=== PATIENT | female | born 1990 | race African-American/Black ===

== ENCOUNTER 2019-06-07 08:45 | Outpatient (RCR) | payer MEDICAID ==
[~2019-06-07 08:45] MED LIST: INSULIN HUMA100 U/ML SQ; LEVOXYL0.088 MG PO; LEVOXYL0.125 MG PO; MAKENA250 MG/1 M IM; MEDROL 4MG DOSPA4 MG PO; MONODOX100 PO; MOTRIN 800800 MG/TAB PO; MYORISAN40 MG PO; NORCO 325 MG-51 TAB PO; PEN-VEE K500 MG PO; PERCOCET 325 MG1 TA2 PO; PRENATAL MVI PO; PRENATAL1 TA7 PO; PROGESTERO50 MG/1 ML
== END 2019-06-30 | disposition home or self-care (01) ==
LOC: MKS.ESL.PT
DX: M25.511 Pain in right shoulder (principal); M25.562 Pain in left knee

== ENCOUNTER 2019-07-18 09:45 | Emergency (ER) | payer MEDICAID ==
[~2019-07-18] VITALS: Ht 152.4 cm; Wt 77.3 kg
[2019-07-18 10:08] VITALS: BP 127/67; TEMP 99.2
[2019-07-18 10:44] LABS: STREP SCREEN POSITIVE
[2019-07-18 11:14] VITALS: PULSE 82
== END 2019-07-18 11:18 | disposition home or self-care (01) ==
LOC: COL.ER 09:45
PROVIDERS: Emergency Medicine
DX: J02.0 Streptococcal pharyngitis (principal); E03.9 Hypothyroidism, unspecified
CPT/HCPCS: J0561

== ENCOUNTER 2020-09-29 16:52 | Emergency (ER) | payer MEDICAID ==
[~2020-09-29] VITALS: Ht 152.4 cm; Wt 74.5 kg
[2020-09-29 16:56] VITALS: TEMP 97.8
[2020-09-29 18:09] LABS: BASO % 0.4 % (0.0-2.0); EOS # 0.1 (0.0-0.7); EOS % 0.7 % (0-4.0); GRAN # 6.7 (1.4-6.5); HEMATOCRIT 41.9 % (37.0-47.0); LYMPH # 2.6 (1.2-3.4); LYMPH % 25.8 % (20.0-51.0); MEAN CELL VOLUME 93 fl (80.0-100.0); MEAN CORPUSCULAR HEMOGLOBIN 31 pg (27.0-31.0); MEAN CORPUSCULAR HGB CONC 33 g/dl (33.0-37.0); MONO # 0.6 (0.1-0.6); MONO % 5.7 % (1.7-9.3); PLATELET COUNT 296 K/mm3 (130-400); RED BLOOD COUNT 4.52 M/mm3 (4.10-5.30); REDCELL DISTRIBUTION WIDTH-CV 12.8 % (11.5-14.5)
[2020-09-29 18:12] LABS: COLLECTION METHOD CLEAN CATCH
[2020-09-29 18:17] LABS: ALBUMIN 4.6 gm/dL (3.5-5.0); BILIRUBIN,TOTAL 0.2 mg/dL (0.0-1.0); CALCIUM 9.8 mg/dL (8.4-10.2); CREATININE, serum 0.94 (0.52-1.25); POTASSIUM 4.1 mmol/L (3.4-5.0); TOTAL PROTEIN 8.8 gm/dL (6.4-8.2)
[2020-09-29 18:47] LABS: MUCOUS Present /lpf; PH 6 (5-8); SQUAMOUS EPITHELIAL 0-2 /hpf; URINE APPEARANCE Clear; URINE BACTERIA Rare /hpf; URINE BILIRUBIN Negative (NEGATIVE); URINE BLOOD Negative (NEGATIVE); URINE COLOR Straw; URINE GLUCOSE Negative (NEGATIVE); URINE KETONE Negative (NEGATIVE); URINE LEUKOCYTE ESTERASE Negative (NEGATIVE); URINE NITRATE Negative (NEGATIVE); URINE PROTEIN(semi-quant) Negative (NEGATIVE); URINE RBC 0-2 /hpf; URINE UROBILINOGEN Negative (NEGATIVE)
[2020-09-29] MEDS ORDERED: LIDODERM 5% PATC1 EA TP (19:10)
[2020-09-29] MEDS ORDERED: FLEXERIL 1010 MG/TAB PO (19:36)
[2020-09-29] MEDS ORDERED: NORCO 325 MG-51 TAB PO (19:36)
[2020-09-29] MEDS ORDERED: MEDROL 4MG DOSPA4 MG PO (19:36)
[2020-09-29 20:15] VITALS: BP 141/79; PULSE 79
== END 2020-09-29 20:15 | disposition home or self-care (01) ==
LOC: COL.ER 16:52
PROVIDERS: Emergency Medicine
DX: R10.32 Left lower quadrant pain (principal); F17.210 Nicotine dependence, cigarettes, uncomplicated
CPT/HCPCS: J1170; J1885; J2060; J2405; J7030; J7512